=== PATIENT | female | born 1995 | race Two or more races ===

== ENCOUNTER 2019-09-04 05:02 | Emergency (ER) | payer SELFPAY ==
[2019-09-04] MEDS ORDERED: Albuterol/Ipratropium 3.0-0.5 MG/3 ML Neb Soln ONE (05:13)
[2019-09-04] MEDS ORDERED: Albuterol/Ipratropium 3.0-0.5 MG/3 ML Neb Soln NEB ONE (05:16)
[2019-09-04] MEDS ORDERED: Dexamethasone 10 MG/ML SDV PO STA (05:19)
--- NOTE | 2019-09-04 05:28 | EDM.PDOC ---
ED HPI GENERAL MEDICAL PROBLEM - General Chief Complaint: Respiratory Problem Stated Complaint: ASTHMA ATTACK Time Seen by Provider: 09/04/19 05:10 Source of Information: Reports: Patient - History of Present Illness INITIAL COMMENTS - FREE TEXT/NARRATIVE: The patient is a 23-year-old female with a history of asthma who has been fighting a "cold" consisting of a stuffy nose, and a mild cough for the past few days who has run out of her inhalers and states that tonight she started developing severe asthma attack within the last couple of hours. No fevers, no other acute complaints. - Related Data Allergies Allergy/AdvReac Type Severity Reaction Status Date / Time No Known Allergies Allergy Verified 09/04/19 05:03 Home Meds: Home Meds Airomir Inhaler 09/04/19 [History] Albuterol Sulfate [Albuterol Sulfate Hfa] 18 gm IH Q4HR PRN #1 [email or web address] [Rx] Past Medical History HEENT History: Reports: None Cardiovascular History: Reports: None Respiratory History: Reports: Asthma Gastrointestinal History: Reports: None Genitourinary History: Reports: None [employer] History: Reports: None Musculoskeletal History: Reports: None Neurological History: Reports: None Psychiatric History: Reports: None Endocrine/Metabolic History: Reports: None Hematologic History: Reports: None Immunologic History: Reports: None Oncologic (Cancer) History: Reports: None Dermatologic History: Reports: None - Infectious Disease History Infectious Disease History: Reports: None Social & Family History - Family History Family Medical History: Noncontributory - Tobacco Use Smoking Status *Q: Never Smoker - Recreational Drug Use Recreational Drug Use: No ED ROS GENERAL - Review of Systems Review Of Systems: See Below (Positive for wheezing and shortness of breath, negative for fevers, negative for chills, all other Positives and pertinent negatives as per HPI. All other pertinent systems were reviewed and are negative ) ED EXAM, GENERAL - Physical Exam Exam: See Below Free Text/Narrative:: Constitutional: Nontoxic, moderate respiratory distress with dyspneic speech HEENT.: Normocephalic, Atraumatic, PERRL, EOMI, External ears are atraumatic, nares are patent without epistaxis Neck: Normal range of motion, Trachea Midline, No stridor Respiratory.: Moderate respiratory distress with decreased aeration throughout , mild expiratory wheezes throughout and one-word sentences, no rales or rhonchi Cardiovascular.: Regular rate and Rhythm without murmurs, rubs, or gallops, good peripheral perfusion GI: obese Genital Urinary: Deferred Musculoskeletal: Good range of motion. All 4 extremities present and atraumatic , no edema Back: Full Range of Motion Skin: Warm, Dry, Color is ethnicity appropriate, No acute rash. Lymphatic: No lymphadenopathy noted Neurological: Alert, Awake and oriented x 3, No focal deficits noted appreciate , GCS 15 Psych: Affect, Judgement, mood normal Course - Vital Signs Text/Narrative:: History and exam are consistent with a viral syndrome with associated asthma attack. The patient has responded well to 2 DuoNeb respiratory treatments and is a question compliance the patient will be given Decadron 20 mg IM. She was watched for short period of time and feels like she is stable to go home but she would like a refill for her inhaler so this will be provided along with PCP follow-up as she has no doctor in the area. Last Recorded V/S: Last Vital Signs Temp 36.0 C L 09/04/19 05:04 Pulse 89 09/04/19 05:04 Resp 28 H 09/04/19 05:04 BP Pulse Ox 96 09/04/19 05:04 - Orders/Labs/Meds Orders: Active Orders 24 hr Category Date Time Status RT Aerosol Therapy [RC] ASDIRECTED Care 09/04/19 05:17 Active Meds: Medications Discontinued Medications Generic Name Dose Route Start Last Admin Trade Name Omidq PRN Reason Stop Dose Admin Albuterol/Ipratropium Confirm 09/04/19 05:13 09/04/19 05:30 Duoneb 3.0-0.5 Mg/3 Ml Administered 09/04/19 05:14 Not Given Dose 3 ml .ROUTE .STK-MED ONE Albuterol/Ipratropium 6 ml 09/04/19 05:16 09/04/19 05:16 Duoneb 3.0-0.5 Mg/3 Ml NEB 09/04/19 05:17 6 ml ONETIME ONE Administration Dexamethasone 20 mg 09/04/19 05:19 09/04/19 05:29 Dexamethasone PO 09/04/19 05:20 20 mg NOW STA Administration Departure - Departure Time of Disposition: 06:02 Disposition: Home, Self-Care 01 Condition: Good Clinical Impression: Viral syndrome, Asthma exacerbation, Medication refill - Discharge Information Referrals: PCP,None [Primary Care Provider] - Forms: ED Department Discharge Sepsis Event Note - Evaluation Sepsis Screening Result: No Definite Risk - Focused Exam Vital Signs: Vital Signs Temp Pulse Resp Pulse Ox 09/04/19 05:04 36.0 C L 89 28 H 96 Date Exam was Performed: 09/04/19 Time Exam was Performed: 06:01 - My Orders Last 24 Hours: My Active Orders 09/04/19 05:17 RT Aerosol Therapy [RC] ASDIRECTED - Assessment/Plan Last 24 Hours: My Active Orders 09/04/19 05:17 RT Aerosol Therapy [RC] ASDIRECTED
== END 2019-09-04 06:13 | disposition home or self-care (01) ==
LOC: MW.ED 05:02
DX: J45.901 Unspecified asthma with (acute) exacerbation (principal); B34.9 Viral infection, unspecified; Z76.0 Encounter for issue of repeat prescription; Z79.899 Other long term (current) drug therapy
CPT/HCPCS: 94640; 99283; J1100; J7620-GY